=== PATIENT | female | born 1960 | race Caucasian/White ===

== ENCOUNTER → 2019-05-01 | Outpatient (REF) ==
--- NOTE | 2019-05-02 01:47 | REP ---
Clinical: Pain. Technique: AP, lateral, bilateral oblique views of the left ankle. Findings: No acute fracture dislocation. No healed injury identified. Joint spaces including ankle mortise are intact and normal. No significant degenerative changes are appreciated. Surrounding soft tissues are unremarkable. Impression: Normal age-appropriate left ankle radiographs. Electronically Signed by Jason Antoine MD 05/02/2019 01:39 A
== END ==
LOC: M SMT 13:26
PROVIDERS: ATTEND Internal Medicine
DX: M51.36 Other intervertebral disc degeneration, lumbar region (principal)

== ENCOUNTER → 2024-02-27 | Outpatient (CLI) | payer BC | LOC: M CLY 14:08 | PROVIDERS: ATTEND Physician Assistant Medical | DX: R05.9 Cough, unspecified (principal); Z53.9 Procedure and treatment not carried out, unspecified reason ==